=== PATIENT | male | born 1980 | race Caucasian/White ===

== ENCOUNTER 2016-11-15 16:03 | Emergency (ER) | payer OTHER ==
[~2016-11-15] VITALS: Ht 177.8 cm; Wt 87.6 kg
[2016-11-15 17:03] LABS: HEMATOCRIT 41.8 % (38.0-50.0); MCH 28.8 PG (29.0-34.0); MCHC 33.7 G/DL (30.0-36.0); MCV 85.3 FL (86-99); MEAN PLAT.VOLUME 9.8 uM^3 (9.0-12.4); PLATELET COUNT 230 K/uL (156-360); RBC DIS.WIDTH-CV 12.4 % (11.8-14.6); RBC DIS.WIDTH-SD 38.5 % (39-53); WHITE BLOOD COUNT 6.4 K/uL (4.1-10.2)
[2016-11-15 17:14] LABS: CHLORIDE 105 mEq/L (99-109); POTASSIUM 4.1 mEq/L (3.7-5.4); SODIUM 140 mEq/L (136-147)
[2016-11-15 17:15] LABS: GLUCOSE 90 mg/dL (70-99)
[2016-11-15 17:17] LABS: ANION GAP 8 MEQ/L (2-14)
[2016-11-15 17:19] LABS: GFR ESTIMATE (CALCULATED) > 59 mL/min/
[2016-11-15 17:20] LABS: UREA NITROGEN (BUN) 14 mg/dL (9-23)
[2016-11-15 17:23] LABS: TROP-I INTERPRETATION NEGATIVE; TROPONIN-I < 0.01 ng/mL (0.0-0.30)
[2016-11-15 17:46] LABS: INFLUENZA A VIRAL ANTIGEN NEGATIVE; INFLUENZA B VIRAL ANTIGEN NEGATIVE
[2016-11-15] MEDS ORDERED: NAPROSYN500 MG PO (18:16)
[2016-11-15] MEDS ORDERED: OMEPRAZOLE40 M1 PO (18:17)
[2016-11-15 18:25] VITALS: BP 113/62
== END 2016-11-15 18:26 | disposition home or self-care (01) ==
LOC: EME 16:03
PROVIDERS: Physician Assistant
DX: M54.12 Radiculopathy, cervical region (principal); K27.9 Peptic ulcer, site unspecified, unspecified as acute or chronic, without hemorrhage or perforation; K21.9 Gastro-esophageal reflux disease without esophagitis; R07.9 Chest pain, unspecified; R51 Headache; M54.5 Low back pain; Z72.0 Tobacco use
CPT/HCPCS: 71020; 80048; 84484; 85027; 87502; 93005; 99281; 99285

== ENCOUNTER 2017-08-28 15:33 | Emergency (ER) | payer OTHER ==
[~2017-08-28] VITALS: Ht 177.8 cm; Wt 84.2 kg
[~2017-08-28 15:33] MED LIST: NAPROSYN500 MG PO; OMEPRAZOLE40 M1 PO
[2017-08-28 15:47] LABS: HEMATOCRIT 43.8 % (38.0-50.0); MCHC 34.5 G/DL (30.0-36.0); MCV 84.1 FL (86-99); MEAN PLAT.VOLUME 9.8 uM^3 (9.0-12.4); PLATELET COUNT 287 K/uL (156-360); RBC DIS.WIDTH-CV 12.3 % (11.8-14.6); RBC DIS.WIDTH-SD 37.2 % (39-53); RED BLOOD COUNT 5.21 M/uL (4.00-5.50)
[2017-08-28 16:02] LABS: CHLORIDE 104 mEq/L (99-109); POTASSIUM 3.9 mEq/L (3.7-5.4); SODIUM 139 mEq/L (136-147)
[2017-08-28 16:05] LABS: GLUCOSE 141 mg/dL (70-99)
[2017-08-28 16:06] LABS: ANION GAP 10 MEQ/L (2-14)
[2017-08-28 16:07] LABS: TOTAL BILIRUBIN 0.6 mg/dL (0.0-1.0)
[2017-08-28 16:08] LABS: ALKALINE PHOSPHATASE 70 IU/L (3-129); GFR ESTIMATE (CALCULATED) > 59 mL/min/ (58.99-99999)
[2017-08-28 16:09] LABS: UREA NITROGEN (BUN) 15 mg/dL (9-23)
[2017-08-28 16:11] LABS: ADD MIUA? NO; BILIRUBIN NEGATIVE; BLOOD NEGATIVE; COLOR STRAW ((YELLOW)); GLUCOSE (STRIP) NEGATIVE; KETONES NEGATIVE; LEUKOCYTES NEGATIVE; NITRITE NEGATIVE; PROTEIN (STRIP) NEGATIVE; SPECIFIC GRAVITY 1.006 (1.000-1.030); UCUL ADDED? NO; UROBILINOGEN 0.2 MG/DL (0.2-1.0)
[2017-08-28 16:12] LABS: LIPASE 12 U/L (1.0-51.0)
[2017-08-28] MEDS ORDERED: BENTYL10 MG PO (18:54)
[2017-08-28 19:09] VITALS: BP 149/96
== END 2017-08-28 19:10 | disposition home or self-care (01) ==
LOC: EME 15:33
DX: R10.9 Unspecified abdominal pain (principal); Z72.0 Tobacco use
CPT/HCPCS: 74177; 80053; 81003; 83690; 85027; 99281; 99284; J1885; J7030